=== PATIENT | male | born 1975 | race Two or more races ===

== ENCOUNTER 2020-02-01 15:23 | Emergency (ER) | payer OTHER, SELFPAY ==
--- NOTE | 2020-02-01 | XR_ITS ---
EXAMINATION: XR second finger, RIGHT CLINICAL INFORMATION: Pain COMPARISON: None TECHNIQUE: Three views of the right second finger. FINDINGS: There are noted to be old healed fractures heads of the right fourth and fifth metacarpals. There is a nondisplaced fracture which is intra-articular through the base of the second distal phalanx. Some spurring is noted dorsally with some overlying calcification within the soft tissues. There is some mild soft tissue prominence. This may represent an acute or healing fracture. XR/XR finger RT min 2V IMPRESSION: Intra-articular fracture base of the second distal phalanx with fracture line still being evident however this may represent a remote healing fracture.
[2020-02-01 15:31] VITALS: BP 147/91; PULSE 83; RESP 18; TEMP 36.8; O2SAT 100; BMI 28.8
--- NOTE | 2020-02-01 17:22 | ED.GENADULT ---
HPI - General Adult General Chief complaint: General Medical Stated complaint: Dislocated Finger Time Seen by Provider: 02/01/20 17:21 Source: patient Mode of arrival: ambulatory Limitations: no limitations History of Present Illness HPI narrative: 44 y/o male presenting with right index finger pain after he fell and jammed it on the ground 2 days ago. He denies other injuries. He is right hand dominant and has increased pain with activity. He has limited flexion of the distal finger due to pain. He denies numbness or tingling. MD complaint: fingre pain Onset (ago): day(s) Location: right and upper extremity Radiation: non-radiation Severity: moderate Severity scale (1-10): 8 Quality: aching Pain Consistency: intermittent Relieving factors: medication and rest Exacerbating factors: movement Associated symptoms: denies other symptoms Treatments prior to arrival: none Related Data Previous Rx's Medication Instructions Recorded hydrocodone-acetaminophen [[place]] 1 tab PO Q8H PRN #6 tab 02/01/20 ibuprofen 600 mg PO Q8H PRN #20 tab 02/01/20 Allergies Allergy/AdvReac Type Severity Reaction Status Date / Time peanut [PEANUTS] Allergy Severe ANAPHYLAXIS Unverified 11/09/19 17:05 almond [ALMONDS] Allergy Unknown SWELLING Unverified 11/09/19 17:05 apple [APPLES] Allergy Unknown SWELLING Unverified 11/09/19 17:05 aspirin [ASPIRIN] Allergy Unknown THROAT Unverified 11/09/19 17:05 SWELLING sprague [CHERRIES] Allergy Unknown SWELLING Unverified 11/09/19 17:05 onion [ONIONS] Allergy Unknown SWELLING Unverified 11/09/19 17:05 orange [ORANGES] Allergy Unknown SWELLING Unverified 11/09/19 17:05 pepper (genus Capsicum) Allergy Unknown SWELLING Unverified 11/09/19 17:05 [PEPPER] raspberry [RASPBERRY] Allergy Unknown SWELLING Unverified 11/09/19 17:05 strawberry [STRAWBERRY] Allergy Unknown SWELLING Unverified 11/09/19 17:05 Review of Systems Review of Systems: Constitutional: No Fever, No Chills Musculoskeletal: + joint pain, No Myalgias Skin: No Skin Lesions, No rash Neuro: No Weakness, No Numbness Heme/Lymph: No Bruising PMFSH Past Medical History Attestation statement: The following information was validated with the patient. Social History Social History Alcohol intake: never Smoked in Last 30 Days: No Use of substances other than those prescribed or required for medical reasons: No Physical Exam Vital Signs: Vital Signs: Last Vital Signs Temp 98.2 F 02/01/20 15:31 Pulse 83 02/01/20 15:31 Resp 18 02/01/20 15:31 BP 147/91 H 02/01/20 15:31 Pulse Ox 100 02/01/20 15:31 Body Mass Index 28.8 Appearance: Alert. Oriented X3. No acute distress. HEENT: normal inspection Respiratory: No respiratory distress. Skin: Skin warm and dry. Normal skin color. Normal skin turgor. No rashes. Extremities: right index finger with tender DIP joint, limited flexion due to pain, NV intact. normal right wrist. normal thumb and digits 3,4,5. Neuro: Oriented X 3. No sensory deficit. Course Course Course Narrative: 44 y/o male presenting with figner pain 2 days after injury. XR showed intraarticular fx at base of 2nd distal phalanx w/ frcature line still being evident, possible a remote healing fx. Patient admits to injury to this finger in the past. He has pain and limited ROM on exam. Will place in extension, splint and have him f/u with Orthopedics. Stable for discharge. Critical Care Time Critical Care Time Critical Care Time: No Discharge Plan Discharge Clinical Impression: Finger fracture, right Qualifiers: Encounter type: initial encounter Finger: index finger Fracture type: closed Phalanx: distal Fracture alignment: nondisplaced Qualified Code(s): S62.660A - Nondisplaced fracture of distal phalanx of right index finger, initial encounter for closed fracture Patient Disposition: Home, Self-Care Instructions: Finger Fracture (ED) Additional Instructions: X-ray today showed a fracture of your finger. Wear finger splint to immobilize the fracture and allow healing. Follow up with Orthopedics eaarly next week. Limit use of your hand as able. Take prescribed medications as needed for pain. Follow up with your doctor as needed. Prescriptions: New ibuprofen 600 mg tablet 600 mg PO Q8H PRN (Reason: pain) Qty: 20 RF: 0 hydrocodone-acetaminophen [[place]] 5-325 mg tablet 1 tab PO Q8H PRN (Reason: pain) Qty: 6 RF: 0 Referrals: Rosa Isela Jackson MD [Physician] - 1 week
== END 2020-02-01 17:59 | disposition home or self-care (01) ==
LOC: HO.ED 17:43
PROVIDERS: Emergency Provider Internal Medicine; PCP Emergency Medicine
DX: S62.660A Nondisplaced fracture of distal phalanx of right index finger, initial encounter for closed fracture (principal); W01.0XXA Fall on same level from slipping, tripping and stumbling without subsequent striking against object, initial encounter; Y93.01 Activity, walking, marching and hiking; Y92.480 Sidewalk as the place of occurrence of the external cause; Y99.9 Unspecified external cause status
CPT/HCPCS: 29130; 73140; 99283

== ENCOUNTER 2020-12-03 15:16 | Emergency (ER) | payer OTHER, SELFPAY ==
[2020-12-03 15:42] VITALS: BP 156/80; PULSE 85; RESP 18; TEMP 36.8; O2SAT 97; BMI 29.6
--- NOTE | 2020-12-03 15:49 | PC.NURSE ---
during triage pt stated he wanted to be brought directly to a room for his pain, this nurse explained to him about the current wait and that we would get his urine and lab work going while he waits, patient stated that he was leaving and not waiting in the WR, this nurse watched the patient leave through the door
== END 2020-12-03 15:49 | disposition left against medical advice (07) ==
PROVIDERS: Emergency Provider Emergency Medicine; PCP Emergency Medicine
DX: M62.838 Other muscle spasm (principal)
CPT/HCPCS: 99281; 99282

== ENCOUNTER 2020-12-04 05:27 | Emergency (ER) | payer OTHER, SELFPAY ==
--- NOTE | ~2020-12-04 | CT_ITS ---
EXAMINATION: CT ABDOMEN AND PELVIS WITHOUT CONTRAST CLINICAL INFORMATION: Right flank pain, microscopic hematuria COMPARISON: 02/08/2016 TECHNIQUE: Multidetector volumetric imaging was performed from the superior aspect of the liver through the pubic symphysis. Sagittal and coronal reformatted images were obtained on the technologist's workstation. This CT examination was performed using dose optimization techniques as appropriate, variously including the following: *Automated exposure control *Adjustment of mA and/or kV according to patient size (this includes techniques or standardized protocols for targeted exams where dose is matched to indication/reason for exam; i.e. extremities or head) *Use of iterative reconstruction technique DLP: 780 mGy-cm FINDINGS: LUNG BASES: The visualized lung bases are unremarkable. LIVER, GALLBLADDER, AND BILIARY TREE: The liver is normal in size, shape, and attenuation. No focal hepatic lesion or biliary ductal dilatation is present. Previously demonstrated fatty infiltration there is no longer present. The gallbladder is unremarkable with no evidence of radiopaque gallstones, gallbladder wall thickening, or obvious pericholecystic inflammatory changes. PANCREAS: Unremarkable. SPLEEN: Unremarkable. ADRENAL GLANDS: Unremarkable. KIDNEYS AND URETERS: The kidneys are normal in size, shape, and attenuation. No hydronephrosis, hydroureter, or calculi seen. No perinephric stranding. BLADDER: Unremarkable. GASTROINTESTINAL TRACT: The small and large bowel are unremarkable. The appendix is unremarkable. ABDOMINAL WALL: No significant hernia is appreciated. LYMPH NODES: Again demonstrated are enlarged retroperitoneal lymph nodes, the largest component of which located between the duodenum and IVC is increased in size, measuring 3.1 x 6.1 cm (previously measured 4.5 x 2.6 cm. Other scattered adenopathy is similar or slightly increased in size located in the Aortic region, inferior to the left renal vein, and between the distal IVC and right psoas muscle. VASCULAR: Unremarkable. PELVIC VISCERA: Unremarkable. OSSEOUS STRUCTURES: Severe bilateral facet arthropathy and grade 1 anterolisthesis at the lumbosacral junction. CT/CT abdomen pelvis wo con IMPRESSION: No renal or ureteral calculi. No hydronephrosis. Normal appendix. Nonspecific retroperitoneal lymphadenopathy has increased since 02/08/2016. This could represent lymphoma. Further workup is recommended if not already performed.
[2020-12-04 05:28] VITALS: BP 151/90; PULSE 94; RESP 16; TEMP 36.6; O2SAT 97; BMI 29.7
[2020-12-04 06:12] LABS: MANUAL DIFF FLAG NO
[2020-12-04 06:13] LABS: Basophils Percent Auto 0.2 % (0-2); Eosinophils Absolute Auto 0.4 X10*3/uL (0.0-0.4); Eosinophils Percent Auto 3.9 % (0-4); Hematocrit 42.4 % (42-52); Hemoglobin 14.7 g/dl (14.0-18.0); Imm Gran Abs Auto 0.04 X10*3/uL (0.00-0.03); Imm Gran Pct Auto 0.4 % (0.0-0.4); Lymphocytes Absolute Auto 0.5 X10*3/uL (1.2-4.9); Lymphocytes Percent Auto 5.2 % (20-40); Mean Corpuscular HGB Conc 34.7 g/dl (31.0-36.0); Mean Corpuscular Hemoglobin 29.5 pg (27.0-33.0); Mean Corpuscular Volume 85.1 fL (80-98); Mean Platelet Volume 9.2 fL (9.4-12.4); Monocytes Absolute Auto 0.8 X10*3/uL (0.1-1.2); Monocytes Percent Auto 7.7 % (2-11); Neutrophils Absolute Auto 8.3 X10*3/uL (2.0-8.3); Neutrophils Percent Auto 82.6 % (45-73); Platelet Count 358 X10*3/uL (160-400); Red Blood Count 4.98 X10*6/uL (4.60-5.80)
[2020-12-04 06:28] LABS: Alanine Aminotransferase 19 U/L (0-40); Albumin Level 4.2 g/dL (3.5-5.0); Alkaline Phosphatase 66 U/L (39-117); Anion Gap 12 (12-20); Aspartate Amino Transferase 19 U/L (5-37); Blood Urea Nitrogen 15 mg/dL (9-16); Calcium 9.5 mg/dL (8.4-10.2); Carbon Dioxide 23 mmol/L (22-29); Chloride 106 mmol/L (96-108); Creatinine Clr Calc Pharmacy 144.1; Estimated Glomerular Filt Rate > 60; Glucose Random 111 mg/dL (60-115); Lipase 41 U/L (8-78); Potassium 3.9 mmol/L (3.3-5.1); Sodium 137 mmol/L (135-145); Total Protein 6.5 g/dL (6.5-8.0)
[2020-12-04 06:34] LABS: Appearance Urine CLEAR; Color Urine YELLOW; Glucose Urine UA NEG (NEG); Leukocyte Esterase Urine NEG (NEG); Nitrite Urine NEG (NEG); UACC Culture Trigger NO; Urine Blood 1+ (NEG); Urine Ketones NEG (NEG); Urine Protein NEG (NEG-TRACE)
[2020-12-04 06:45] LABS: WBC Urine 0 /HPF (0-4)
--- NOTE | 2020-12-04 06:47 | ED_ITS ---
HPI - Abdominal Pain General Chief Complaint: Abdominal Pain Stated Complaint: Abd cramping Time Seen by Provider: 12/04/20 06:03 Source: patient Mode of arrival: ambulatory Limitations: no limitations History of Present Illness HPI narrative: Patient comes emergency room complaining of right-sided flank pain. Patient states it started yesterday. Patient states he has also bilateral upper quadrant cramping. Patient denies urinary symptoms, no URI symptoms, no fever chills. Patient denies vomiting or diarrhea Related Data Previous Rx's Medication Instructions Recorded hydrocodone 5 mg-acetaminophen 325 1 tab PO Q8H PRN #6 tab 02/01/20 mg tablet ([place]) ibuprofen 600 mg tablet 600 mg PO Q8H PRN #20 tab 02/01/20 Allergies Allergy/AdvReac Type Severity Reaction Status Date / Time peanut [PEANUTS] Allergy Severe ANAPHYLAXIS Verified 12/03/20 15:41 almond [ALMONDS] Allergy Intermediate SWELLING Verified 12/03/20 15:41 apple [APPLES] Allergy Intermediate SWELLING Verified 12/03/20 15:41 aspirin [ASPIRIN] Allergy Intermediate THROAT Verified 12/03/20 15:41 SWELLING sprague [CHERRIES] Allergy Intermediate SWELLING Verified 12/03/20 15:41 onion [ONIONS] Allergy Intermediate SWELLING Verified 12/03/20 15:41 orange [ORANGES] Allergy Intermediate SWELLING Verified 12/03/20 15:41 pepper (genus Capsicum) Allergy Intermediate SWELLING Verified 12/03/20 15:41 [PEPPER] raspberry [RASPBERRY] Allergy Intermediate SWELLING Verified 12/03/20 15:41 strawberry [STRAWBERRY] Allergy Intermediate SWELLING Verified 12/03/20 15:41 Review of Systems Review of Systems Constitutional : No Weight loss, No Fever, No Chills, No Night Sweats, No Fatigue, No Malaise ENT/Mouth : No Hearing loss, No Ear Pain, No Nasal Congestion, No Sinus Pain, No Hoarseness, No sore throat, No Rhinorrhea, No Swallowing Difficulty Eyes: No Eye Pain, No Swelling, No Redness, No Foreign Body, No Discharge, No Vision Changes Cardiovascular : No Chest Pain, No SOB, No Dyspnea on Exertion, No Orthopnea, No Edema, No Palpitations Respiratory : No Cough, No Sputum, No Wheezing, No Smoke Exposure, No Dyspnea Gastrointestinal : No Nausea, No Vomiting, No Diarrhea, No Constipation, complaining of mild bilateral upper quadrant cramping and right flank pain intermittently, Hematochezia, No Melena Genitourinary : no irregular bleeding, No Dysuria, No Urinary Frequency, No Hematuria, No Urinary Incontinence, No Urgency, No Flank Pain, No Urinary Flow Changes, No Hesitancy Musculoskeletal : No joint pain, No Myalgias, No Joint Swelling Skin : No Skin Lesions, No rash Neuro : No Weakness, No Numbness, No Paresthesias, No Loss of Consciousness, No Dizziness, No Headache Psych : No Anxiety/Panic, No Depression, No SI/HI/AH/VH, No Social Issues, Heme/Lymph: No Bruising, No Bleeding,No Lymphadenopathy Endocrine : No Polyuria, No Polydipsia, No Temperature Intolerance Physical Exam Vital Signs: Vital Signs: Last Vital Signs Temp 99.1 F 12/04/20 07:48 Pulse 74 12/04/20 07:48 Resp 16 12/04/20 07:48 BP 130/77 12/04/20 07:48 Pulse Ox 96 12/04/20 07:48 Body Mass Index 29.7 Const: Other: Appearance: Alert. Oriented X3. No acute distress. Eyes: Pupils equal, round and reactive to light. ENT: Pharynx normal. Neck: Normal inspection. Neck supple. No lymph nodes noted. No crepitus CVS: Normal heart rate and rhythm. Pulses normal. Normal S1 and S2 Respiratory: No respiratory distress. Breath sounds normal. No Wheezing. No rales Abdomen: Soft , no tenderness, no CVA tenderness, No rigidity. No distention. Skin: Skin warm and dry. Normal skin color. Normal skin turgor. Extremities: No lower extremity edema. No lower extremity edema. No Lacerations. No Rash Neuro: Oriented X 3. No motor deficit. No sensory deficit. Moving all extermities. No slurred speech. Course Course Course Narrative: I discussed the CT scan with the patient, his retroperitoneal lymph nodes are bigger than in 2016. Patient is to have follow-up with hematology/oncology and with his PCP, has a diagnosis may be lymphoma. Patient will be giving information to make an appointment with Hematology/Oncology. MDM - Abdominal Pain Lab Data Result diagrams: 12/04/20 06:06 12/04/20 06:06 Labs: Lab Results 12/04/20 12/04/20 12/04/20 Range/Units 06:06 06:06 06:26 WBC 10.0 (4.8-10.8) X10*3/uL RBC 4.98 (4.60-5.80) X10*6/uL Hgb 14.7 (14.0-18.0) g/dl Hct 42.4 (42-52) % MCV 85.1 (80-98) fL MCH 29.5 (27.0-33.0) pg MCHC 34.7 (31.0-36.0) g/dl RDW 13.0 (11.0-16.0) % Plt Count 358 (160-400) X10*3/uL MPV 9.2 L (9.4-12.4) fL Immature Gran % (Auto) 0.4 (0.0-0.4) % Neut % (Auto) 82.6 H (45-73) % Lymph % (Auto) 5.2 L (20-40) % [place] % (Auto) 7.7 (2-11) % Eos % (Auto) 3.9 (0-4) % Baso % (Auto) 0.2 (0-2) % Lymph # (Auto) 0.5 L (1.2-4.9) X10*3/uL [place] # (Auto) 0.8 (0.1-1.2) X10*3/uL Eos # (Auto) 0.4 (0.0-0.4) X10*3/uL Baso # (Auto) 0.0 (0.0-0.2) X10*3/uL Abs Immat Gran (auto) 0.04 H (0.00-0.03) X10*3/uL Absolute Neuts (auto) 8.3 (2.0-8.3) X10*3/uL Absolute Nucleated RBC 0.000 (0.0-0.012) X10*3/uL Nucleated RBC % (auto) 0.0 (0.0-0.2) /100WBC Sodium 137 (135-145) mmol/L Potassium 3.9 (3.3-5.1) mmol/L Chloride 106 (96-108) mmol/L Carbon Dioxide 23 (22-29) mmol/L Anion Gap 12 (12-20) BUN 15 (9-16) mg/dL Creatinine 0.70 (0.5-1.4) mg/dL Estim Creat Clear Calc 144.1 Estimated GFR > 60 Random Glucose 111 (60-115) mg/dL Calcium 9.5 (8.4-10.2) mg/dL Total Bilirubin 1.0 (0.0-1.0) mg/dL AST 19 (5-37) U/L ALT 19 (0-40) U/L Alkaline Phosphatase 66 (39-117) U/L Total Protein 6.5 (6.5-8.0) g/dL Albumin 4.2 (3.5-5.0) g/dL Lipase 41 (8-78) U/L Urine Color YELLOW Urine Appearance CLEAR Urine pH 6.0 (5.0-8.0) Ur Specific [place] 1.020 (1.005-1.025) Urine Protein NEG (NEG-TRACE) MG/DL Urine Glucose (UA) NEG (NEG) MG/DL Urine Ketones NEG (NEG) MG/DL Urine Blood 1+ H (NEG) Urine Nitrite NEG (NEG) Ur Leukocyte Esterase NEG (NEG) Urine RBC 1-4 (0) /HPF Urine WBC 0 (0-4) /HPF Urine WBC Clumps Cancelled Ur Squamous Epith Cells NONE /LPF Ur Renal Epithelial Cell Cancelled [place] Biurate Crystals Cancelled Calcium Carbonate Cryst Cancelled Calcium Phosphate Cryst Cancelled Calcium Oxalate Crystal Cancelled Leucine Crystals Cancelled Cystine Crystals Cancelled Uric Acid Crystals Cancelled Triple Phos Crystals Cancelled [place] Crystals Cancelled Tyrosine Crystals Cancelled Other Crystals Cancelled Amorphous Sediment Cancelled Urine Bacteria NONE /LPF Epithelial Casts Cancelled Fatty Casts Cancelled Hyaline Casts Cancelled Granular Casts Cancelled Waxy Casts Cancelled RBC Casts Cancelled WBC Casts Cancelled Other Casts Cancelled Urine Mucus Cancelled Urine Trichomonas Cancelled Urine Yeast Cancelled Urine Sperm Cancelled Ur Oval Fat Bodies Cancelled Discharge Plan Discharge Clinical Impression: Lymphadenopathy, retroperitoneal Patient Disposition: Home, Self-Care Instructions: Lymphadenopathy (ED) Additional Instructions: Please follow-up with your primary care physician and please schedule an appointment with Hematology and Oncology, please call today to schedule an appointment. you have any worsening or new symptoms, please return to the emergency room or call 911 Prescriptions: No Action ibuprofen 600 mg tablet 600 mg PO Q8H PRN (Reason: pain) Qty: 20 RF: 0 hydrocodone-acetaminophen [[place]] 5-325 mg tablet 1 tab PO Q8H PRN (Reason: pain) Qty: 6 RF: 0 Referrals: Davis Perez MD [Physician] - 1 day (Increased retroperitoneal lymphadenopathy) [facility] Past Medical History Medical History No pertinent past medical history Social History Social History Alcohol intake: never Patient Tobacco Use Status: Never used Tobacco Use of substances other than those prescribed or required for medical reasons: Yes Substance Use Type: Marijuana Substance Use Frequency: Occasionally Advance Directives: No
[2020-12-04 07:48] VITALS: BP 130/77; PULSE 74; RESP 16; TEMP 37.3; O2SAT 96
== END 2020-12-04 08:33 | disposition home or self-care (01) ==
PROVIDERS: Emergency Provider Emergency Medicine
DX: I89.0 Lymphedema, not elsewhere classified (principal)
CPT/HCPCS: 36415; 74176; 80053; 81001; 83690; 85025; 99284

== ENCOUNTER 2021-03-12 08:26 | Outpatient (REF) | payer OTHER, SELFPAY ==
--- NOTE | ~2021-03-12 | US_ITS ---
EXAMINATION: US PELVIS LIMITED (BLADDER) CLINICAL INFORMATION: Hematuria, unspecified. COMPARISON: CT abdomen and pelvis 12/04/2020. TECHNIQUE: Real-time imaging of the bladder. FINDINGS: BLADDER: Well distended and normal. Bilateral ureteral jets are demonstrated. Prevoid bladder volume is 235 mL. Postvoid bladder volume is 0 mL. The prostate gland is normal in size. Prostate volume 19.7 mL. US/US bladder IMPRESSION: Normal bladder ultrasound.
--- NOTE | ~2021-03-12 | US_ITS ---
EXAMINATION: US ABDOMEN COMPLETE CLINICAL INFORMATION: Right upper quadrant pain. COMPARISON: Ultrasound bladder 03/12/2021. CT abdomen and pelvis 12/04/2020. TECHNIQUE: Real-time imaging of the abdominal viscera. FINDINGS: PANCREAS: Not well visualized due to bowel gas ABDOMINAL AORTA: The proximal, mid, and distal segments are normal in caliber. INFERIOR VENA CAVA: Visualized portions are normal. LIVER: Normal. The liver is normal in size. The liver contour is normal. Parenchymal echogenicity is normal. No focal hepatic lesion. There is no intrahepatic biliary duct dilatation seen. GALLBLADDER: Normal. The gallbladder is physiologically distended without evidence of stones, sludge, polyps, wall thickening or pericholecystic fluid. COMMON BILE DUCT: Normal in caliber measuring 0.3 cm in diameter. RIGHT KIDNEY: Normal. No hydronephrosis. No renal calculi or focal parenchymal lesions. The kidney measures 12.0 cm in maximum dimension. LEFT KIDNEY: Normal. No hydronephrosis. No renal calculi or focal parenchymal lesions. The kidney measures 12.6 cm in maximum dimension. SPLEEN: Normal. The spleen measures 10.6 cm in maximum dimension. FREE FLUID: None. ADDITIONAL FINDINGS: There is a complex cystic area in the right retroperitoneum at level of the renal hilum. This measures maximum 5.4 x 3.8 x 5.5 cm in dimension. This does not appear appreciably changed in size from previous CT November 2020. When compared with previous CT scan, this may represent cystic degeneration of retroperitoneal lymph nodes. US/US abdomen complete IMPRESSION: Complex cystic retroperitoneal lesion at the level of the renal hilum. This may represent cystic degeneration of retroperitoneal lymph nodes. This is probably similar in size to November 2020 CT scan. Limited visualization of the pancreas. Otherwise unremarkable exam.
== END 2021-03-12 08:27 | disposition home or self-care (01) ==
LOC: HO.HMGCX 08:26
PROVIDERS: Visit Provider Physician Assistant
DX: R10.11 Right upper quadrant pain (principal); R31.9 Hematuria, unspecified
CPT/HCPCS: 76700; 76857

== ENCOUNTER 2021-03-12 09:59 | Outpatient (REF) | payer OTHER, SELFPAY ==
[2021-03-12 12:04] LABS: Estimated Average Glucose 105 mg/dL; Hemoglobin A1c % 5.3 %
[2021-03-12 12:11] LABS: Prostate Specific Antigen Scr 0.53 ng/mL (<0.05-4.0); TSH reflex Free T4 0.32 uIU/mL (0.32-4.0)
[2021-03-12 12:14] LABS: Alanine Aminotransferase 19 U/L (0-40); Albumin Level 4.4 g/dL (3.5-5.0); Alkaline Phosphatase 73 U/L (39-117); Anion Gap 11 (12-20); Aspartate Amino Transferase 18 U/L (5-37); Bilirubin Total 0.9 mg/dL (0.0-1.0); Blood Urea Nitrogen 14 mg/dL (9-16); Calcium 9.8 mg/dL (8.4-10.2); Carbon Dioxide 29 mmol/L (22-29); Chloride 101 mmol/L (96-108); Cholesterol 192 mg/dL; Estimated Glomerular Filt Rate > 60; Glucose Fasting 93 mg/dL (60-99); HDL Cholesterol 50 mg/dL; LDL Cholesterol Calculated 123 mg/dl; Potassium 4.3 mmol/L (3.3-5.1); Sodium 137 mmol/L (135-145); Triglycerides 95 mg/dL
[2021-03-12 14:06] LABS: Urine Cytology See Pathology rpt
== END 2021-03-12 10:00 | disposition home or self-care (01) ==
LOC: HO.HMGCX 09:59
PROVIDERS: PCP Physician Assistant; Visit Provider Physician Assistant
DX: Z12.5 Encounter for screening for malignant neoplasm of prostate (principal); Z13.220 Encounter for screening for lipoid disorders; Z13.29 Encounter for screening for other suspected endocrine disorder; R31.9 Hematuria, unspecified; R59.0 Localized enlarged lymph nodes
CPT/HCPCS: 36415; 80053; 80061; 83036; 84153; 84443; 88112

== ENCOUNTER 2022-05-16 07:34 | Outpatient (REF) | payer OTHER, SELFPAY ==
--- NOTE | ~2022-05-16 | XR_ITS ---
EXAMINATION: XR HAND, RIGHT CLINICAL INFORMATION: Pain. COMPARISON: Right finger radiographs dated 01/31/2010. TECHNIQUE: PA, lateral, and oblique views of the right hand. FINDINGS: Bony alignment and mineralization are normal. There is moderate osteoarthritic change of the second distal interphalangeal joint. There is mild osteoarthritic change of the third and fourth distal interphalangeal joints. A periarticular calcification is seen adjacent to the fourth distal interphalangeal joint. There are slight osteoarthritic changes of the first through fifth metacarpophalangeal joints. There are old, healed fractures of the fourth and fifth distal metacarpal bones. No acute fracture or dislocation is seen. No erosions or soft tissue calcifications. XR/XR hand RT 2V IMPRESSION: 1. There are osteoarthritic changes of the second through fourth distal interphalangeal joints, most pronounced of the second distal patella joint, where changes are moderate. 2. There are slight osteoarthritic changes of the metacarpophalangeal joints. 3. There are old, healed right fourth and fifth metacarpal fractures. 4. There is no abnormal bone erosion. EXAMINATION: XR HAND, LEFT CLINICAL INFORMATION: Pain. COMPARISON: None available. TECHNIQUE: PA, lateral, and oblique views of the left hand. FINDINGS: The bones and soft tissues are normal. No fracture. A tiny accessory ossification center is seen adjacent to the ulnar styloid. Alignment is anatomic. Joint spaces are maintained. No erosions or soft tissue calcifications. IMPRESSION: Normal left hand.
--- NOTE | ~2022-05-16 | XR_ITS ---
EXAMINATION: XR HAND, RIGHT CLINICAL INFORMATION: Pain. COMPARISON: Right finger radiographs dated 01/31/2010. TECHNIQUE: PA, lateral, and oblique views of the right hand. FINDINGS: Bony alignment and mineralization are normal. There is moderate osteoarthritic change of the second distal interphalangeal joint. There is mild osteoarthritic change of the third and fourth distal interphalangeal joints. A periarticular calcification is seen adjacent to the fourth distal interphalangeal joint. There are slight osteoarthritic changes of the first through fifth metacarpophalangeal joints. There are old, healed fractures of the fourth and fifth distal metacarpal bones. No acute fracture or dislocation is seen. No erosions or soft tissue calcifications. XR/XR hand LT 2V IMPRESSION: 1. There are osteoarthritic changes of the second through fourth distal interphalangeal joints, most pronounced of the second distal patella joint, where changes are moderate. 2. There are slight osteoarthritic changes of the metacarpophalangeal joints. 3. There are old, healed right fourth and fifth metacarpal fractures. 4. There is no abnormal bone erosion. EXAMINATION: XR HAND, LEFT CLINICAL INFORMATION: Pain. COMPARISON: None available. TECHNIQUE: PA, lateral, and oblique views of the left hand. FINDINGS: The bones and soft tissues are normal. No fracture. A tiny accessory ossification center is seen adjacent to the ulnar styloid. Alignment is anatomic. Joint spaces are maintained. No erosions or soft tissue calcifications. IMPRESSION: Normal left hand.
[2022-05-16 08:21] LABS: Hematocrit 45.5 % (42.0-52.0); Hemoglobin 15.6 g/dl (14.0-18.0); Mean Corpuscular HGB Conc 34.3 g/dl (31.0-36.0); Mean Corpuscular Hemoglobin 29.5 pg (27.0-33.0); Mean Platelet Volume 9.5 fL (9.4-12.4); Platelet Count 385 X10*3/uL (160-400); Red Blood Count 5.29 X10*6/uL (4.60-5.80); White Blood Count 10.9 X10*3/uL (4.8-10.8)
[2022-05-16 09:04] LABS: Prostate Specific Antigen Scr 0.58 ng/mL (<0.05-4.0); TSH reflex Free T4 0.17 uIU/mL (0.32-4.0)
[2022-05-16 09:06] LABS: Alanine Aminotransferase 16 U/L (0-40); Albumin Level 4.2 g/dL (3.5-5.0); Alkaline Phosphatase 71 U/L (39-117); Anion Gap 13 (12-20); Aspartate Amino Transferase 17 U/L (5-37); Blood Urea Nitrogen 14 mg/dL (9-16); Calcium 9.7 mg/dL (8.4-10.2); Carbon Dioxide 24 mmol/L (22-29); Chloride 107 mmol/L (96-108); Cholesterol 200 mg/dL; Estimated Glomerular Filt Rate > 60; Glucose Fasting 97 mg/dL (60-99); HDL Cholesterol 46 mg/dL; LDL Cholesterol Calculated 142 mg/dl; Potassium 4.7 mmol/L (3.3-5.1); Rheumatoid Factor < 13.0 IU/mL (<15.0); Sodium 139 mmol/L (135-145); Total Protein 6.5 g/dL (6.5-8.0); Triglycerides 60 mg/dL
[2022-05-16 11:37] LABS: Free T4 (Free Thyroxine) 1.16 ng/dL (0.71-1.85)
[2022-05-18 16:34] LABS: Cyclic Citrullinated Peptide <16 UNITS
[2022-05-20 15:08] LABS: Anti Nuclear Antibody Screen NEGATIVE (NEGATIVE)
== END 2022-05-16 07:35 | disposition home or self-care (01) ==
LOC: HO.LAB 07:34
PROVIDERS: PCP Physician Assistant; Visit Provider Physician Assistant
DX: Z13.220 Encounter for screening for lipoid disorders (principal); Z12.5 Encounter for screening for malignant neoplasm of prostate; Z13.29 Encounter for screening for other suspected endocrine disorder; M79.641 Pain in right hand; M79.642 Pain in left hand
CPT/HCPCS: 36415; 73120; 80053; 80061; 84153; 84439; 84443; 85027; 86038; 86039; 86200; 86431

== ENCOUNTER 2022-06-26 14:57 | Outpatient (RCR) | payer OTHER, SELFPAY ==
--- NOTE | 2022-08-07 13:43 | MHC.OT.DC ---
[address] [phone] F: [phone] Occupational Therapy Discharge Note Patient Name: Enrique Marinelli Provider: Maikol Valle Diagnosis: Pain in right hand Date of Surgery: Date of Evaluation: 06/26/22 Date of Discharge: 08/07/22 Treatments to Date: 1 Cancellations to Date: No Shows to Date: 4 Discharge Status: Visit Non-compliance Discharge Summary: See eval for details. Electronically Signed By: Bere Ceballos OT CHT CLT Reviewed/agree with student documentation: Therapist: Please Sign and return to therapist, thank you for your referral.
== END 2022-08-07 13:44 | disposition home or self-care (01) ==
LOC: HO.OT 14:57
PROVIDERS: PCP Physician Assistant; Visit Provider Physician Assistant
DX: M79.641 Pain in right hand (principal)
CPT/HCPCS: 97110; 97166

== ENCOUNTER 2024-04-27 13:27 | Outpatient (AMB) | payer OTHER, SELFPAY ==
--- NOTE | 2024-04-27 13:29 | A.OFFPC_ITS ---
Vital Signs 04/27/24 13:31 Height 5 ft 6.9 in Weight 195 lb BMI 30.6 BP 130/78 Blood Pressure Location Lt brachial Position Sitting Pulse 96 Pulse Source Pulse Oximeter Pulse Oximetry (%) 98 Oxygen Delivery Method Room Air Intake Visit Reasons: Annual PE Intake Note: Patient here for a physical exam, c/o bilateral hand cramping Supervisor Mapping Required: No Accompanied by: Self / Same As Patient Allergies peanut [PEANUTS] Allergy (Severe, Verified 04/27/24 13:42) ANAPHYLAXIS almond [ALMONDS] Allergy (Intermediate, Verified 04/27/24 13:42) SWELLING apple [APPLES] Allergy (Intermediate, Verified 04/27/24 13:42) SWELLING aspirin [ASPIRIN] Allergy (Intermediate, Verified 04/27/24 13:42) THROAT SWELLING sprague [CHERRIES] Allergy (Intermediate, Verified 04/27/24 13:42) SWELLING onion [ONIONS] Allergy (Intermediate, Verified 04/27/24 13:42) SWELLING orange [ORANGES] Allergy (Intermediate, Verified 04/27/24 13:42) SWELLING pepper (genus Capsicum) [PEPPER] Allergy (Intermediate, Verified 04/27/24 13:42) SWELLING raspberry [RASPBERRY] Allergy (Intermediate, Verified 04/27/24 13:42) SWELLING strawberry [STRAWBERRY] Allergy (Intermediate, Verified 04/27/24 13:42) SWELLING Tobacco use date assessed: 04/27/24 Dental Screening Dental Screen Date: 04/27/24 Did you have a dental visit in the last 12 months?: No Did you have a dental problem in the last 6 months where you did not have access to dental care?: No Was dental information given to patient?: Patient has dentist HPI Annual PE HPI Details Patient is a 49 year male here today for annual physical.? Patient has a past medical history significant for retroperitoneal lymphadenopathy . Concerns--> Reports having upper extremity knumbness and pressure sensation over the last 2 months. He has had x-rays of his hands that did show moderate arthritis. Also he reports Knee pain occurring mainly during stair descent. The pain suggests patellofemoral knee syndrome, corroborated by episodic mechanical discomfort and alleviation following specific exercises which strengthen muscular support around the knee joint. Asthma: He does report having a history of asthma and does use albuterol inhaler from time to time when he does get shortness of breath and wheezing. Has never had PFT testing to formally diagnose asthma Vaccine: UTD with Tdap, Declines COVID and flu vaccine .. 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 1. Little interest or pleasure in doing things: not at all 2. Feeling down, depressed, or hopeless: not at all 3. Trouble falling or staying asleep, or sleeping too much: not at all 4. Feeling tired or having little energy: not at all 5. Poor appetite or overeating: not at all 6. Feeling bad about yourself - or that you are a failure or have let yourself or your family down: not at all 7. Trouble concentrating on things, such as reading the newspaper or watching television: not at all 8. Moving or speaking so slowly that other people could have noticed. Or the opposite - being so fidgety or restless that you have been moving around a lot m ore than usual: not at all 9. Thoughts that you would be better off or of hurting yourself in some way: not at all Total score: 0 Depression Screening Interpretation: Negative Depression Screening Done: Yes 36266 - PHQ-9 Billing: Yes Source: Developed by Drs. Eros Blair, Ann Montoya, Adam Mejia and colleagues, with an educational lizzette from [employer]. Thrive Questionnaire Date Thrive assessed: 04/27/24 I am a: Patient What is your living situation today?: I choose not to answer this question Within the past 12 months, did the food you bought not last and you didn't have the money to get more?: I choose not to answer this question Within the past 12 months, did you worry whether your food would run out before you got money to buy more?: I choose not to answer this question Do you have trouble paying for medicines?: I choose not to answer this question Do you have trouble getting transportation to medical appointments?: I choose not to answer this question Do you have trouble paying your heating and electricity bill?: I choose not to answer this question Do you have trouble taking care of your child, family member or friend?: I choose not to answer this question Do you have trouble with day-to-day activities such as bathing, preparing meals, shopping, managing finances, etc.?: I choose not to answer this question Are you currently unemployed and looking for a job?: I choose not to answer this question Are you interested in more education?: I choose not to answer this question Please select the resources that you would like help with: None Currently or been in a relationship where the following occur: I choose not to answer THRIVE Score: 0 AUDIT C Alcohol Use Questionnaire (AUDIT-C) 1. How often do you have a drink containing alcohol?: Never Total Score: 0 ABELINO-7 AMB Questionnaire ABELINO-7 Date ABELINO - 7 assessed: 04/27/24 Feeling nervous, anxious, or on edge: 0 = Not at all Not being able to stop or control worryin = Not at all Worrying too much about different things: 0 = Not at all Trouble relaxin = Not at all Being so restless that it is hard to sit still: 0 = Not at all Becoming easily annoyed or irritable: 0 = Not at all Feeling afraid as if something awful might happen: 0 = Not at all Total ABELINO-7 score (0-4 normal; 5-9 mild; 10-14 moderate; 15-21 severe): 0 Source: Developed by Drs. Eros Blair, Ann Montoya, Adam Mejia and colleagues, with an educational lizzette from [employer]. Review of Systems Const Denies body aches, Denies chills, Denies excessive sweating, Denies fatigue, Denies fever(s) and Denies headache(s) Eyes Denies blurry vision ENT Denies dysphagia, Denies vertigo, Denies dizziness, Denies headache(s), Denies hearing loss and Denies tinnitus Card Denies chest pain, Denies chest pain with activity, Denies syncope, Denies irregular heart rhythm and Denies dyspnea Resp Denies chest congestion, Denies cough, Denies hemoptysis, Denies dyspnea and Denies wheezing GI Denies abdominal pain, Denies melena, Denies hematochezia, Denies coffee ground emesis, Denies dysphagia, Denies diarrhea, Denies nausea and Denies vomiting Denies difficulty urinating, Denies dysuria, Denies urinary frequency, Denies urinary hesitancy and Denies urinary urgency Musc Denies arthralgias, Denies limited range of motion, Denies muscle cramps and Denies muscle weakness Skin/Breast Denies rash and Denies skin ulcer Neuro Denies Abnormal speech present, Denies confusion, Denies vertigo, Denies dizziness, Denies syncope, Denies headache(s), Denies memory loss and Denies seizure-like activity Psych Denies anxiety, Denies confusion, Denies depression, Denies memory loss, Denies panic attacks and Denies paranoia Endo Denies excessive sweating, Denies fatigue, Denies flushing, Denies polydipsia and Denies polyuria Aller/Immun Denies wheezing Physical exam (Primary Care) Vital Signs: Last Vital Signs Pulse 96 04/27/24 13:31 BP 130/78 04/27/24 13:31 Pulse Ox 98 04/27/24 13:31 Oxygen Delivery Method Room Air 04/27/24 13:31 BMI result Body Mass Index 30.6 BMI Assessment/Plan discussion: High BMI High, discussed plan: lifestyle, weight reduction, dietary and physical activity Tobacco/Smoking Status: Tobacco use Status Tobacco use date assessed 04/27/24 04/27/24 13:38 Patient Tobacco Use Status Never used Tobacco 04/27/24 13:47 e-Cigarette/Vaping Use Never Used 04/27/24 13:47 PHQ-9: PHQ-9 Score PHQ-9: Total score 0 04/27/24 14:07 Depression Screening Interpretation: Negative Thrive Assessment: Date of Thrive Assessment Date Thrive assessed 04/27/24 04/27/24 13:38 Currently or been in a relationship where the following occur: I choose not to answer Const General: cooperative, comfortable, no acute distress, alert and awake; No confusion Orientation/consciousness: oriented to person, oriented to place, patient oriented x3 and No confusion HENMT Head: Yes normocephalic Ears: external ears normal and TM's normal bilaterally Face and sinus: No sinus tenderness Mouth: Normal oral and palatal mucosa present and tongue normal Teeth and gingiva: dentition normal and gingiva normal Throat: Yes posterior oropharynx normal, Yes tonsils normal and Yes uvula midline Eyes Conjunctivae: conjunctivae normal Sclerae: sclerae normal Pupils: Equal, round and reactive pupils present EOM: EOMs intact bilaterally Direct Ophthalmoscopy: No no photophobia Neck Neck: Yes no lymphadenopathy, No tender and Yes no JVD Thyroid: Thyroid normal Carotids: no bruits Chest Chest palpation & inspection: no tenderness Resp Effort & Inspection: normal respiratory effort, no audible wheezes, not labored and no stridor Auscultation: no crackles, no rales, no rhonchi and no wheezes Cardio Jugular venous distension: no JVD Rate: regular rate, not bradycardic and not tachycardic Rhythm: regular rhythm Bruits: no carotid bruits Peripheral pulses: Peripheral pulses 2+ throughout GI Inspection: Yes normal to inspection, No abdominal wall ecchymosis and No visible herniation Palpation (GI): Soft to palpation, nontender, no guarding, not rigid and No hepatosplenomegaly present Auscultation: normoactive bowel sounds General: Yes no CVA tenderness Back/Spine/Pelvis Back: no CVA tenderness and No back tenderness Cervical Spine: cervical ROM normal Thoracic/Lumbar Spine: thoracic and lumbar spine normal to inspection, straight leg raise negative bilaterally, No thoraco-lumbar ROM limited and No lumbar spinal tenderness Skin Lesions: no lesions Rashes: no rashes Wounds: no wounds Neuro General: oriented to person, oriented to place, patient oriented x3, CN's II-XI intact bilaterally and No confusion Cranial nerves: Yes Equal, round and reactive pupils present and Yes Normal accommodation reflex present Cognition (Neuro): normal cognition Speech: No Abnormal speech present Gait exam (Neuro): Normal gait present Motor exam (neuro): 5/5 motor strength present throughout Extrem Right upper extremity: full ROM; no cyanosis Left upper extremity: full ROM; no cyanosis Right lower extremity: no edema Left lower extremity: no edema Psych Appearance: grossly normal Mental Status: mental status grossly normal Affect: normal affect Attitude: cooperative Thought process: Normal thought process present Coding Level of Care Code Est Pt Prev Care 40-64y(21532) Diagnoses Annual physical exam Z00.00 Paresthesia of hand, bilateral R20.2 Screening for diabetes mellitus (DM) Z13.1 Class 1 obesity E66.811 Patellofemoral pain syndrome of both knees M22.2X1; M22.2X2 Laterality: bilateral Additional Codes PHQ-9 - 35595 - PHQ-9 Billing: Yes ([id number]) Assessment & Plan Assessment & Plan (1) Annual physical exam: Code(s): Z00.00 - Encounter for general adult medical examination without abnormal findings Category: Medical Plan: As per HPI (2) Paresthesia of hand, bilateral: Code(s): R20.2 - Paresthesia of skin Category: Medical Plan: The symptoms suggest a potential diagnosis of carpal tunnel or related nerve entrapment syndrome. An EMG study is planned to explore nerve function. Surgical options remain viable pending diagnostic results. (3) Screening for diabetes mellitus (DM): Code(s): Z13.1 - Encounter for screening for diabetes mellitus Category: Medical Plan: As per HPI (4) Class 1 obesity: Code(s): E66.811 - Obesity, class 1 Category: Medical Plan: Patient does understand his BMI is over 30 will work on being more physically active and adapting to better eating habits to reduce his weight (5) Patella-femoral syndrome: Code(s): M22.2X9 - Patellofemoral disorders, unspecified knee Category: Medical Qualifiers: Laterality: bilateral Qualified Code(s): M22.2X1 - Patellofemoral disorders, right knee; M22.2X2 - Patellofemoral disorders, left knee Plan: Conservative management involves exercises and posture alteration. Formal imaging may be pursued to elucidate the extent of degenerative changes. Orders: Orders NE electromyogram (EMG) 04/27/24 R20.2 - Paresthesia of skin Complete Blood Count no Diff 04/27/24 Z13.1 - Encounter for screening for diabetes mellitus Comprehensive [place]. Panel Fast 04/27/24 Z13.1 - Encounter for screening for diabetes mellitus Prostate Specific Antigen Scr 04/27/24 Z12.5 - Encounter for screening for malignant neoplasm of prostate, Z13.1 - Encounter for screening for diabetes mellitus XR knee RT 3V 04/27/24 M22.2X1 - Patellofemoral disorders, right knee, M22.2X2 - Patellofemoral disorders, left knee XR knee LT 3V 04/27/24 M22.2X1 - Patellofemoral disorders, right knee, M22.2X2 - Patellofemoral disorders, left knee Referrals Cologuard Test Z12.11 - Encounter for screening for malignant neoplasm of colon
[2024-04-27 13:31] VITALS: BP 130/78; PULSE 96; O2SAT 98; BMI 30.6
== END 2024-04-27 14:08 | disposition home or self-care (01) ==
PROVIDERS: PCP Physician Assistant; Visit Provider Physician Assistant
DX: Z00.00 Encounter for general adult medical examination without abnormal findings (principal); R20.2 Paresthesia of skin; E66.811 Obesity, class 1; Z68.30 Body mass index [BMI] 30.0-30.9, adult; Z13.1 Encounter for screening for diabetes mellitus; M22.2X1 Patellofemoral disorders, right knee; M22.2X2 Patellofemoral disorders, left knee

== ENCOUNTER → 2024-04-27 13:27 | Outpatient (BNVA) | payer OTHER, SELFPAY | PROVIDERS: PCP Physician Assistant; Visit Provider Physician Assistant | DX: Z00.00 Encounter for general adult medical examination without abnormal findings (principal); R20.2 Paresthesia of skin; M22.2X1 Patellofemoral disorders, right knee; M22.2X2 Patellofemoral disorders, left knee; E66.811 Obesity, class 1; Z68.30 Body mass index [BMI] 30.0-30.9, adult | CPT/HCPCS: 96127 ==

== ENCOUNTER 2024-10-26 13:55 | Outpatient (AMB) | payer OTHER, SELFPAY ==
[2024-10-26 14:06] VITALS: BP 120/62; PULSE 96; O2SAT 98; BMI 31.3
--- NOTE | 2024-10-26 14:06 | MHC.PC.OV ---
Vital Signs 10/26/24 14:06 Height 5 ft 6.9 in Weight 199 lb 2 oz BMI 31.3 BP 120/62 Blood Pressure Location Lt brachial Position Sitting Pulse 96 Pulse Oximetry (%) 98 Oxygen Delivery Method Room Air Intake Visit Reasons: 6 Month F/U Promotional Marketing Analyst Required: No Accompanied by: Self / Same As Patient Allergies peanut (PEANUTS) Allergy (Severe, Verified 10/26/24 14:22) ANAPHYLAXIS almond (ALMONDS) Allergy (Intermediate, Verified 10/26/24 14:22) SWELLING apple (APPLES) Allergy (Intermediate, Verified 10/26/24 14:22) SWELLING aspirin (ASPIRIN) Allergy (Intermediate, Verified 10/26/24 14:22) THROAT SWELLING sprague (CHERRIES) Allergy (Intermediate, Verified 10/26/24 14:22) SWELLING onion (ONIONS) Allergy (Intermediate, Verified 10/26/24 14:22) SWELLING orange (ORANGES) Allergy (Intermediate, Verified 10/26/24 14:22) SWELLING pepper (genus Capsicum) (PEPPER) Allergy (Intermediate, Verified 10/26/24 14:22) SWELLING raspberry (RASPBERRY) Allergy (Intermediate, Verified 10/26/24 14:22) SWELLING strawberry (STRAWBERRY) Allergy (Intermediate, Verified 10/26/24 14:22) SWELLING Medication List - Last Reconciled 10/26/24 by Maikol Valle PA-C albuterol sulfate 90 mcg/actuation 2 puffs inhalation Q6H PRN 30 days Tobacco use date assessed: 04/27/24 Dental Screening Dental Screen Date: 10/26/24 Did you have a dental visit in the last 12 months?: No Did you have a dental problem in the last 6 months where you did not have access to dental care?: No Was dental information given to patient?: Patient has dentist HPI 6 Month F/U HPI Details Patient is a 49 year male here today for follow-up visit.? Patient has a past medical history significant for retroperitoneal lymphadenopathy . Asthma: He does report having a history of asthma and does use albuterol inhaler from time to time when he does get shortness of breath and wheezing. Intermittent paresthesias of bilateral hands has been evident though much less frequent. We did order EMG though has not been scheduled, will hold off on this for now as it has not been frequent and severe. . Class 1 obesity: Patient does understand his BMI is over 30 will work on being more physically active and adapting to better eating habits to reduce his weight . 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 1. Little interest or pleasure in doing things: not at all 2. Feeling down, depressed, or hopeless: not at all 3. Trouble falling or staying asleep, or sleeping too much: not at all 4. Feeling tired or having little energy: not at all 5. Poor appetite or overeating: not at all 6. Feeling bad about yourself - or that you are a failure or have let yourself or your family down: not at all 7. Trouble concentrating on things, such as reading the newspaper or watching television: not at all 8. Moving or speaking so slowly that other people could have noticed. Or the opposite - being so fidgety or restless that you have been moving around a lot more than usual: not at all 9. Thoughts that you would be better off or of hurting yourself in some way: not at all Total score: 0 Depression Screening Interpretation: Negative Depression Screening Done: Yes 13771 - PHQ-9 Billing: Yes Source: Developed by Drs. Eros Blair, Ann Montoya, Adam Mejia and colleagues, with an educational lizzette from [employer]. Thrive Questionnaire Date Thrive assessed: 04/27/24 I am a: Patient What is your living situation today?: I choose not to answer this question Within the past 12 months, did the food you bought not last and you didn't have the money to get more?: I choose not to answer this question Within the past 12 months, did you worry whether your food would run out before you got money to buy more?: I choose not to answer this question Do you have trouble paying for medicines?: I choose not to answer this question Do you have trouble getting transportation to medical appointments?: I choose not to answer this question Do you have trouble paying your heating and electricity bill?: I choose not to answer this question Do you have trouble taking care of your child, family member or friend?: I choose not to answer this question Do you have trouble with day-to-day activities such as bathing, preparing meals, shopping, managing finances, etc.?: I choose not to answer this question Are you currently unemployed and looking for a job?: I choose not to answer this question Are you interested in more education?: I choose not to answer this question Please select the resources that you would like help with: None Currently or been in a relationship where the following occur: I choose not to answer THRIVE Score: 0 AUDIT C Alcohol Use Questionnaire (AUDIT-C) 3. How often do you have six or more drinks on one occasion?: Never Total Score: 0 ABELINO-7 AMB Questionnaire ABELINO-7 Date ABELINO - 7 assessed: 04/27/24 Source: Developed by Drs. Eros Blair, Ann Montoya, Adam Mejia and colleagues, with an educational lizzette from [employer]. ACT Questionnaire In the past 4 weeks, how much of the time did your asthma keep you from getting as much done at work, school or at home?: None of the time During the past 4 weeks, how often have you had shortness of breath?: Not at all During the past 4 weeks, how often did your asthma symptoms wake you up at night or earlier than usual in the morning?: Not at all During the past 4 weeks, how often have you had to use your rescue inhaler or nebulizer medication?: Not at all How would you rate your asthma control during the past 4 weeks?: Completely controlled ACT Interpretation: Negative Score: 25 Review of Systems Const Denies headache(s) Eyes Denies loss of vision ENT Denies vertigo, Denies dizziness, Denies headache(s) and Denies sore throat Card Denies chest pain, Denies leg edema and Denies lightheadedness Resp Denies cough, Denies hemoptysis and Denies wheezing GI Denies abdominal pain, Denies melena, Denies constipation, Denies diarrhea and Denies vomiting Denies dysuria, Denies urinary frequency and Denies urinary urgency Musc Denies arthralgias, Denies joint swelling, Denies numbness and Denies tingling Neuro Denies Abnormal speech present, Denies behavioral changes, Denies vertigo, Denies dizziness, Denies headache(s), Denies loss of vision, Denies memory loss, Denies numbness and Denies tingling Psych Denies anxiety, Denies behavioral changes, Denies depression, Denies memory loss and Denies panic attacks Junior/Lymph Denies easy bleeding and Denies easy bruising Aller/Immun Denies wheezing Physical exam (Primary Care) Vital Signs: Last Vital Signs Pulse 96 10/26/24 14:06 BP 120/62 10/26/24 14:06 Pulse Ox 98 10/26/24 14:06 Oxygen Delivery Method Room Air 10/26/24 14:06 BMI result Body Mass Index 31.3 BMI Assessment/Plan discussion: High BMI High, discussed plan: lifestyle, weight reduction, dietary and physical activity Tobacco/Smoking Status: Tobacco use Status Tobacco use date assessed 04/27/24 10/26/24 14:07 Patient Tobacco Use Status Never used Tobacco 10/26/24 14:07 e-Cigarette/Vaping Use Never Used 10/26/24 14:07 PHQ-9: PHQ-9 Score PHQ-9: Total score 0 10/26/24 14:07 Depression Screening Interpretation: Negative Thrive Assessment: Date of Thrive Assessment Date Thrive assessed 04/27/24 10/26/24 14:07 Currently or been in a relationship where the following occur: I choose not to answer Const General: healthy appearing, no acute distress, alert and awake Nutritional Appearance: well nourished Orientation/consciousness: oriented to person, oriented to place and oriented to time HENMT Ears: TM's normal bilaterally General nose exam: Normal nasal mucous membranes and turbinates present Eyes Conjunctivae: conjunctivae normal Sclerae: sclerae normal Pupils: Equal, round and reactive pupils present Neck Neck: Yes no lymphadenopathy and Yes no JVD Thyroid: Thyroid normal Carotids: no bruits Resp Effort & Inspection: normal respiratory effort and not tachypneic Auscultation: no crackles, no rales, no rhonchi and no wheezes Cardio Rate: regular rate Rhythm: regular rhythm Heart sounds: no murmurs and normal S1 and S2 GI Palpation (GI): Soft to palpation, nontender, no hepatomegaly and no splenomegaly Auscultation: normal bowel sounds Skin General skin exam: no rashes or lesions noted and dry skin Neuro General: oriented to person, oriented to place and oriented to time Cranial nerves: Yes Equal, round and reactive pupils present Speech: No Abnormal speech present Gait exam (Neuro): Normal gait present Motor exam (neuro): no tremor noted Extrem Right upper extremity: full ROM Left upper extremity: full ROM Right lower extremity: full ROM; no edema Left lower extremity: full ROM; no edema Psych Mental Status: mental status grossly normal Speech and movement: Normal speech and movement present Affect: normal affect Attitude: cooperative Thought process: Normal thought process present Coding Level of Care Code Est Pt Level 3 (62036) Diagnoses Class 1 obesity E66.811 Mild intermittent asthma without complication J45.20 Asthma severity: mild Asthma persistence: intermittent Asthma complication type: uncomplicated Additional Codes Asthma Control Questionnaire - ACT Interpretation: Negative ([id number]) PHQ-9 - 15255 - PHQ-9 Billing: Yes ([id number]) Assessment & Plan Assessment & Plan (1) Class 1 obesity: Code(s): E66.811 - Obesity, class 1 Category: Medical Plan: Patient does understand his BMI is over 30 will work on being more physically active and adapting to better eating habits to reduce his weight (2) Asthma: Code(s): J45.909 - Unspecified asthma, uncomplicated Category: Medical Qualifiers: Asthma severity: mild Asthma persistence: intermittent Asthma complication type: uncomplicated Qualified Code(s): J45.20 - Mild intermittent asthma, uncomplicated Plan: Patient reports his asthma has been well controlled without need for an albuterol inhaler. Usually in the servin his asthma kicks up. Otherwise denies any nighttime awakenings with asthma symptoms Medications: Refilled albuterol sulfate 90 mcg/actuation 2 puffs inhalation Q6H PRN 8.5 grams 4RF shortness of breath or wheezing 30 days J45.20 - Mild intermittent asthma, uncomplicated
--- OUTSIDE RECORDS SUMMARY | 2024-10-26 15:11 | XMS_ITS | Clinical Summary ---
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 Name Role Phone Unavailable Primary Care Provider Unavailabl e Allergies No known active allergies Medications No known medications Social History Tobacco Use Types Packs/Day Years Used Date Smoking Tobacco: Never Smokeless Tobacco: Never Tobacco Cessation:Counseling Given: Not Answered Alcohol Use Standard Drinks/Week Comments Defer 0 (1 standard drink = 0.6 oz pur e alcohol) Sex and Gender Information Value Date Recorded Sex Assigned at Male 12/22/2021 10:24 AM EDT Legal Sex Male 10:24 AM EDT Gender Identity Male 12/22/2021 10:24 AM EDT Sexual Orientation Straight 12/22/2021 10 :24 AM EDT Last Filed Vital Signs Vital Sign Reading Time Taken Comments Blood Pressure 136/74 08/26/2022 3:07 PM EDT Pulse 72 06/05/2022 1:47 PM EDT Temperature - - Respiratory Rate - - Oxygen Saturation - - Inhaled Oxygen Concentration - - Weight - - Height - - Body Mass Index - - Plan of Treatment Health Maintenance Due Date Last Done Comments CT Colonography 1975 Colonoscopy 1975 Colorectal Cancer Screening 1975 Dental Prophylaxis 1975 Dental X-Ray: Bitewings 1975 Depression Screening 1975 FIT DNA/Cologuard 1975 FIT 1975 FOBT 1975 HIV Screening 1975 Lipid Panel 1975 SDOH Screening 1975 Sigmoidoscopy 1975 Disability Screening 1975 Alcohol/Substance Use Screening 1987 Family Planning (PISQ) 1990 Hepatitis C Screening 1993 Hepatitis B Vaccines (1 of 3 - 19+ 3-dose series) 1994 Pneumococcal Vaccine: Pediat rics (0 to 5 Years) and At-Risk Patients (6 to 49) Years (1 of 2 - PCV) 1994 Dental Oral Exam 12/06/2022 06/05/2022 Tobacco Screening 08/27/2023 08/26/2022 COVID-19 Vaccine (1 - 2023-2 5 season) 2023 Influenza Vaccine (#1) 2024 Zoster Vaccines (1 of 2) 2025 Dental X-Ray: Full Mouth 06/26/2025 06/25/2022 DTaP/Tdap/Td Vaccines (2 - T d or Tdap) 03/06/2031 03/06/2021 RSV Patients and Pa tients Aged 60 years or older (1 - 1-dose 75+ series) 2050 HIB Vaccines Aged Out No longer eligi ble based on patient's age to complete this topic HPV Vaccines Aged Out No longer eligi ble based on patient's age to complete this topic Hepatitis A Vaccines Aged Out No long er eligible based on patient's age to complete this topic IPV Vaccines Aged Out No longer eligi ble based on patient's age to complete this topic Meningococcal B Vaccine Aged Out No l onger eligible based on patient's age to complete this topic Meningococcal Vaccine Aged Out No elizabet ghazal eligible based on patient's age to complete this topic RSV under 20 months Aged Out No longe r eligible based on patient's age to complete this topic Rotavirus Vaccines Aged Out No longer eligible based on patient's age to complete this topic Procedures Procedure Name Priority Date/Time Associated Diagnosis Comments PANORAMIC RADIOGRAPHIC IMAGE Routine 06/25/2022 9:00 AM EDT PERIODIC ORAL EVALUATION - ESTABLISHED PATIENT Routine 06/05/2022 1:30 PM EDT from Last 3 Months or Most Recently Relevant to Health Maintenance Insurance DENTAL - [facility] PARTIAL (MEDICAID)
== END 2024-10-26 14:38 | disposition home or self-care (01) ==
LOC: HO.HMCH 13:56
PROVIDERS: PCP Physician Assistant; Visit Provider Physician Assistant
DX: J45.20 Mild intermittent asthma, uncomplicated (principal); E66.811 Obesity, class 1; Z68.31 Body mass index [BMI] 31.0-31.9, adult

== ENCOUNTER → 2024-10-26 13:55 | Outpatient (BNVA) | payer OTHER, SELFPAY | PROVIDERS: PCP Physician Assistant; Visit Provider Physician Assistant | DX: J45.20 Mild intermittent asthma, uncomplicated (principal); E66.811 Obesity, class 1; Z68.31 Body mass index [BMI] 31.0-31.9, adult | CPT/HCPCS: 96127; 96160 ==